=== PATIENT | female | born 1975 | race Caucasian/White ===

== ENCOUNTER → 2016-07-16 | Outpatient (CLI) | payer BC ==
--- NOTE | 2016-07-16 21:18 | WWHP ---
DATE OF SERVICE: 07/16/2016. CHIEF COMPLAINT: Patient is here for her routine gynecologic exam. HPI: This is a 40-year-old G3, P3 with an LMP of 06/19/2016. Her is status post vasectomy. The patient states her periods are regular every month, and they typically last about 7 to 8 days with 3 days of heavier flow. She also has a lot of cramping on the heavy days. PAST MEDICAL HISTORY: Anxiety. MEDICATIONS: 1. Lexapro 20 mg daily. 2. Iron supplement 65 mg daily. 3. Vitamin D 4000 units daily. ALLERGIES: No known drug allergies. PAST SURGICAL HISTORY: Gastric bypass 2010, tonsillectomy with adenoidectomy at age 11, right knee arthroscopic surgery at age 14. Past OB history: 3 vaginal deliveries. 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 SOCIAL HISTORY: She denies tobacco, alcohol, and drug use. She has been since 1992. She recently moved to the area from [place]. 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 FAMILY HISTORY: Paternal grandmother and a paternal aunt had breast cancer. REVIEW OF SYSTEMS: Weight has been stable. However, she did lose about 100 pounds after her bariatric surgery in 2010. She denies respiratory, cardiac, or GI problems. PHYSICAL EXAM: Blood pressure 142/82. Height 5 feet 5 inches. Weight 198 pounds. Temperature 98.1, pulse 70. This is a well-developed, well-nourished white female who is alert and oriented x3 in no acute distress. HEENT is within normal limits. NECK: Supple without mass or thyromegaly. CHEST AND LUNGS: Clear to auscultation. HEART: Regular rate and rhythm. Breasts are without mass or discharge. Axillary exam is negative for adenopathy. BACK: Negative for CVA tenderness. ABDOMEN: Soft, nontender, without palpable masses. PELVIC EXAM: Normal external genitalia. Cervix and vagina appear normal. There is no unusual discharge. There is no cervical motion tenderness. The uterus is mid to anterior, about 8 week size and it is nontender. There are no palpable adnexal masses or tenderness. Rectal exam is negative for mass or tenderness and is negative for occult blood. EXTREMITIES: Nontender. IMPRESSION: 1. A 40-year-old female with mild hypermenorrhea. 2. Mildly enlarged uterus and otherwise unremarkable gynecologic exam. 3. Mildly elevated blood pressure. PLAN: 1. Pap smear was performed. 2. Self-breast examination was discussed. 3. Mammogram will be due in about 1 to 2 months according to the patient and an order form was given to patient for this. 4. We had a long discussion regarding possible options for her hypermenorrhea including medical treatment with meclofenamate sodium. She was advised to avoid NSAID type medications because of her gastric surgery. She would like to look into doing an endometrial ablation. The ACOG frequently ask questions #[id number] handout was given to the patient. We will make a referral to a local gynecologists for possible ablation. 5. She was instructed to have her blood pressure checked on a regular basis and follow up with her primary care physician for elevated blood pressures. 6. She will return in one year. MELONY
== END ==
LOC: WWCWWP 07:54
PROVIDERS: ATTEND Obstetrics & Gynecology
DX: Z01.419 Encounter for gynecological examination (general) (routine) without abnormal findings (principal); N92.0 Excessive and frequent menstruation with regular cycle; R03.0 Elevated blood-pressure reading, without diagnosis of hypertension

== ENCOUNTER → 2016-10-01 | Outpatient (CLI) | payer BC, OTHER ==
--- NOTE | 2016-10-03 08:07 | MM ---
Reason for exam: screening (asymptomatic). Last mammogram was performed 1 year and 1 month ago. History: Family history of breast cancer in paternal grandmother at age 60 and breast cancer in paternal aunt at age 50. Physical Findings: A clinical breast exam by your physician is recommended on an annual basis and results should be correlated with mammographic findings. MG 3D Screening Mammo W/Cad Bilateral CC and MLO view(s) were taken. Prior study comparison: August 27, 2015, mammogram. There are scattered fibroglandular densities. There is chronic nodularity in the left breast. No significant changes when compared with prior studies. ASSESSMENT: Negative, BI-RAD 1 RECOMMENDATION: Routine screening mammogram of both breasts in 1 year.
== END | disposition home or self-care (01) ==
LOC: RADMAMWWP 16:44
PROVIDERS: ATTEND Obstetrics & Gynecology
DX: Z12.31 Encounter for screening mammogram for malignant neoplasm of breast (principal)
CPT/HCPCS: 77063; G0202

== ENCOUNTER → 2016-10-03 | Outpatient (CLI) | payer OTHER ==
[2016-10-03 08:01] LABS: Anisocytosis Slight; Aty Lym Flag Slight; CH 18.2; CHCM 27.5; HCT 25.6 % (34.0-46.0); HDW 3.55; HGB 7.2 gm/dL (11.4-16.0); Hypochromasia Marked; MCH 18.8 pg (25.0-35.0); MCHC 28.2 g/dL (31.0-37.0); MCV 66.6 fL (80.0-100.0); Microcytosis Marked; Poikilocytosis Slight; RBC 3.85 m/uL (3.80-5.40); RDW 16.5 % (11.5-15.5); WBC 2.9 k/uL (3.8-10.6); WBC (Perox) 2.95
[2016-10-03 08:46] LABS: Add Differential Manual Differential
[2016-10-03 08:51] LABS: Manual Review Performed; Nucleated Red Blood Cells 0 /100 WBC (0-0); Total Cells Counted 100
== END | disposition home or self-care (01) ==
LOC: LABPAT 06:56
PROVIDERS: ATTEND Obstetrics & Gynecology
DX: Z01.812 Encounter for preprocedural laboratory examination (principal); N92.0 Excessive and frequent menstruation with regular cycle
CPT/HCPCS: 36415; 85025

== ENCOUNTER 2016-10-13 08:16 | Day surgery (SDC) | payer BC, OTHER ==
[2016-10-09 09:32] VITALS: BMI 30.7
--- NOTE | 2016-10-09 20:44 | HP ---
DATE OF ADMISSION: 10/13/2016 HISTORY OF PRESENT ILLNESS: Guadalupe is a 41-year-old 3, para 3-0-0-3, who presents initially on referral from Dr. Gaines for possible endometrial ablation. She has complaints of long-standing heavy and long cycles. Each cycle lasts at least 7 to 9 days and they are very heavy, often bleeding through protection. Her has had a vasectomy and she is not in need of contraception but would like some treatment for her menorrhagia. Past medical history is significant only for long-standing anemia, which has been confirmed with preoperative labs during this ( ) and will be evaluated more thoroughly following the procedure. Past surgical history is significant for: 1. Gastric bypass in 2010. 2. She had tonsils and adenoids removed in 1986. 3. She has also had right knee arthroscopy. There were no anesthetic concerns. OBSTETRICAL HISTORY: 3, para 3-0-0-3 with 3 term vaginal deliveries without complications. Method of contraception is vasectomy. Gynecologic history is unremarkable, with no history of any infections to include STDs. FAMILY HISTORY: Noncontributory. SOCIAL HISTORY: The patient is and works for ( ). She is a nonsmoker and denies any alcohol, drugs or any other social concerns. Current medications include: 1. Iron sulfate 325 mg daily. 2. Lexapro 20 mg daily. 3. Vitamin D3 4000 units daily. ALLERGIES: NO KNOWN DRUG ALLERGIES. Review of systems is confined to History of Present Illness. PHYSICAL EXAMINATION: Vital signs are stable. The patient is afebrile. In general, this is a well-developed, well-nourished white female in no acute distress. Her heart has a regular rhythm and rate without murmur. Her lungs are clear to auscultation bilaterally in all ernandez. Her abdomen is nondistended, has normoactive bowel sounds. It is soft, nontender and without any palpable masses, hepatosplenomegaly or hernias. Her extremities are without any cyanosis, clubbing or edema and are nontender to palpation. Pelvic examination demonstrates normal external genitalia and BUS with normal vaginal mucosa and cervix. There is no cervical motion tenderness. The uterus sounded to 8 cm and endometrial biopsy performed demonstrated adequate tissue which was ultimately found to be benign. The uterus is 5 to 6 weeks in size, mid plane, mobile, nontender and normal in shape. The adnexa are normal and nontender without mass bilaterally. ASSESSMENT AND PLAN: Menorrhagia. We discussed multiple different options for treatment, including Lysteda and/or meclofenamate. We also discussed hormonal manipulation. The patient declined all these in favor of proceeding with NovaSure endometrial ablation. The risks and complications of the procedure have been thoroughly discussed, including the risks for bleeding, bleeding requiring transfusion, infection and injury to local structures, specifically to include uterine perforation, Asherman syndrome and subsequent hematometra. She understood all of these concerns and has agreed to proceed. We are scheduled for the morning of Thursday, October 13, 2016.
[~2016-10-13 08:16] MED LIST: DEXAMETHASONE SOD PHOSPHATE 10 MG/ML 1 ML VIAL IV ONE; LACTATED RINGERS 1,000 ML IV SCH; MIDAZOLAM 2 MG/2 ML VIAL IV PRN; ONDANSETRON 4 MG/2 ML VIAL IVP ONE; Pre Op ABX Message 1 EACH MISC MISCELLANE ONE
[2016-10-13] MEDS ORDERED: LIDOCAINE 1% 20 ML VIAL (10MG/ML) FOR IV START SQ ONE (09:05)
[2016-10-13] MEDS ORDERED: MIDAZOLAM 2 MG/2 ML VIAL ONE (09:54)
[2016-10-13] MEDS ORDERED: KETOROLAC 30 MG/ML 1 ML VIAL ONE (09:54)
[2016-10-13] MEDS ORDERED: LIDOCAINE 1% INJ 10MG/ML (20 ML MDV) ONE (09:54)
[2016-10-13] MEDS ORDERED: fentaNYL (PF) 50 MCG/ML 2 ML AMP ONE (09:54)
[2016-10-13] MEDS ORDERED: PROPOFOL 10 MG/ML 20 ML VIAL IV ONE (09:54)
[2016-10-13] MEDS ORDERED: KETOROLAC 30 MG/ML 1 ML VIAL IVP PRN (10:29)
[2016-10-13] MEDS ORDERED: SIMETHICONE 80 MG CHEWABLE PO PRN (10:29)
[2016-10-13] MEDS ORDERED: Acetaminophen-Codeine 300-30mg TAB PO PRN ×2 (10:29)
[2016-10-13] MEDS ORDERED: IBUPROFEN 600 MG TAB PO PRN (10:29)
[2016-10-13] MEDS ORDERED: ONDANSETRON 4 MG/2 ML VIAL IVP PRN (10:29)
[2016-10-13] MEDS ORDERED: diphenhydrAMINE 50 MG/ML 1 ML VIAL IVP PRN (10:29)
[2016-10-13] MEDS ORDERED: METOCLOPRAMIDE 5 MG/ML 2 ML VIAL IVP PRN (10:29)
[2016-10-13] MEDS ORDERED: LACTATED RINGERS 1,000 ML IV SCH (10:30)
--- NOTE | 2016-10-13 10:35 | P.OP ---
Date of Procedure: 10/13/16 Preoperative Diagnosis: #1. Menorrhagia #2. Anemia Postoperative Diagnosis: Same Procedure(s) Performed: #1. Diagnostic hysteroscopy #2. NovaSure endometrial ablation Implants: Anesthesia: other (Gen. by facemask) Surgeon: Amando Mcfadden Estimated Blood Loss (ml): 5 IV fluids (ml): 400 Urine output (ml): 75 Pathology: other Condition: stable Disposition: PACU Indications for Procedure: Operative Findings: Preoperative pelvic examination demonstrated a 5-6 week anteverted mobile normal shaped uterus with normal adnexa bilaterally. Intraoperatively, the uterus sounded to approximately 9.5 cm with a cervical length of roughly 3.5 cm. Hysteroscopic Sameer the view was somewhat obscured by blood in the saline as well as some shaggy tissue. The tube tubal areas were noted though not clearly seen. The settings for the NovaSure tool for a length of 6.0 cm, a width of 4.4 cm, a total power 145 seconds. After a total run time of 113 seconds, the base unit read "procedure complete." The postprocedural result appeared to be excellent. The patient is a poor candidate for vaginal hysterectomy should it become necessary. Description of Procedure: The patient was prepped and draped in usual fashion after general anesthesia was administered by the anesthesiologist. A weighted speculum was placed and the anterior lip of the cervix grasped with a single-tooth tenaculum. The bladder was draining approximately 75 mL of clear marika urine. The uterus was sounded to roughly 9.5 cm with a cervical length of roughly 3.5 cm as noted above. Serial dilation was carried out to admit the diagnostic scope. The scope was placed within the endometrial cavity and the view was somewhat obscured by shaggy tissue as well as blood in the saline though there did not appear to be any pathology present. The tubal ostia were vaguely visualized. After hysteroscopy had been deemed adequate, the scope was removed and set aside and further dilation carried out to admit the NovaSure tool. The 2 was placed within the in vitro cavity and seated well. The settings for the tool are as noted above. The cavity check was attempted and passed without difficulty. The tool was enabled and the run was started. After a run time of 113 seconds, the base unit disengaged and read "procedure complete." The 2 was closed, removed, and discarded. The diagnostic scope was replaced within the in vitro cavity and the result appeared to be excellent. All instrumentation was removed. Small points of bleeding at the tenaculum sites were made hemostatic with pressure. Estimated blood loss for the entire case was less than 5 mL. There were no complications. All sponge, instrument, and needle counts were correct. The patient tolerated the procedure well and proceeded to the recovery room in stable condition.
[2016-10-13 10:36] VITALS: TEMP 98
[2016-10-13] MEDS: MEPERIDINE 50 MG/ML SYRINGE IVP ONE ×2 (10:47→10:52)
[2016-10-13 10:49] VITALS: RESP 18
[2016-10-13] MEDS: HYDROmorphone 1 MG/ML 1 ML SYRINGE IVP PRN ×2 (11:16→11:22)
[2016-10-13 11:52] VITALS: PULSE 70
[2016-10-13] MEDS ORDERED: LACTATED RINGERS 1,000 ML IV ONE (11:57)
[2016-10-13 12:09] VITALS: BP 133/89
== END 2016-10-13 12:19 | disposition home or self-care (01) ==
LOC: OR 08:16
PROVIDERS: ATTEND Obstetrics & Gynecology
DX: N92.0 Excessive and frequent menstruation with regular cycle (principal); D64.9 Anemia, unspecified; Z98.84 Bariatric surgery status; Z79.899 Other long term (current) drug therapy
CPT/HCPCS: 81025; 58563; J2250; J1100; J2175; J2405; J2001; J3010; J1885; J1170; J2704

== ENCOUNTER → 2017-06-16 | Outpatient (CLI) | payer BC ==
--- NOTE | 2017-06-16 10:42 | US ---
EXAMINATION TYPE: US bladder DATE OF EXAM: 06/16/2017 COMPARISON: NONE CLINICAL HISTORY: 41-year-old female N32.89 Bladder spasm. TECHNIQUE: Multiple sonographic images of the bladder are obtained. FINDINGS: No gross abnormality of the initially urine distended bladder. Both ureteral jets are visualized. Pos t Void Residual Volume: 15.9 mL, increased but falls within an acceptable range. IMPRESSION: Some residual volume in the bladder after voiding (15.9 mL) falls within an acceptable range.
== END ==
LOC: RADUSWWP 10:12
PROVIDERS: ATTEND Family Medicine
DX: N32.89 Other specified disorders of bladder (principal)
CPT/HCPCS: 76857

== ENCOUNTER → 2017-07-30 | Outpatient (CLI) | payer MEDICAID ==
--- NOTE | 2017-07-31 10:55 | ECHOF ---
Referral Reason:R00.1 Bradycardia MEASUREMENTS -------- HEIGHT: 165.1 cm WEIGHT: 81.6 kg BP: RVIDd: 3.7 cm (< 3.3) IVSd: 1.1 cm (0.6 - 1.1) LVIDd: 4.9 cm (3.9 - 5.3) LVPWd: 1.0 cm (0.6 - 1.1) IVSs: 1.6 cm LVIDs: 3.1 cm LVPWs: 1.5 cm LAESV Index (A-L): 30.44 ml/m Ao Diam: 2.9 cm (2.0 - 3.7) AV Cusp: 1.9 cm (1.5 - 2.6) LA Diam: 3.8 cm (2.7 - 3.8) EPSS: 0.8 cm MV E Tyrone: 0.86 m/s MV DecT: 280 ms MV A Tyrone: 0.90 m/s MV E/A Ratio: 0.95 RAP: 5.00 mmHg RVSP: 27.91 mmHg MV EF SLOPE: 79.89 mm/s (70 - 150) MV EXCURSION: 1.19 cm (> 18.000) FINDINGS -------- Resting bradycardia (HR<60bpm). This was a technically good study. The left ventricular size is normal. Left ventricular wall thickness is normal. Overall left vent ricular systolic function is normal with, an EF between 55 - 60 %. The right ventricle is mild to moderately enlarged. LA is midly dilated 29-33ml/m2. RA appears enlarged. The aortic valve is trileaflet, and appears structurally normal. No aortic stenosis or regurgitation. The mitral valve leaflets are mildly thickened. There is trace to mild mitral regurgitation. Mild tricuspid regurgitation present. Right ventricular systolic pressure is normal at < 35 mmHg. There is no evidence of pulmonary hypertension. Trace/mild (physiologic) pulmonic regurgitation. The aortic root size is normal. Normal inferior vena cava with normal inspiratory collapse consistent with estimated right atrial pre ssure of 5 mmHg. There is no pericardial effusion. CONCLUSIONS -------- 1. Resting bradycardia (HR<60bpm). 2. This was a technically good study. 3. The left ventricular size is normal. 4. Left ventricular wall thickness is normal. 5. Overall left ventricular systolic function is normal with, an EF between 55 - 60 %. 6. The right ventricle is mild to moderately enlarged. 7. LA is midly dilated 29-33ml/m2. 8. RA appears enlarged. 9. The aortic valve is trileaflet, and appears structurally normal. No aortic stenosis or regurgitati on. 10. The mitral valve leaflets are mildly thickened. 11. There is trace to mild mitral regurgitation. 12. Mild tricuspid regurgitation present. 13. Right ventricular systolic pressure is normal at < 35 mmHg. 14. There is no evidence of pulmonary hypertension. 15. Trace/mild (physiologic) pulmonic regurgitation. 16. The aortic root size is normal. 17. There is no pericardial effusion. ELECTRICAL SYSTEMS DESIGNER: Tonny Chau RDCS
== END | disposition home or self-care (01) ==
LOC: RADECHMAIN 13:52
PROVIDERS: ATTEND Family Medicine
DX: I08.1 Rheumatic disorders of both mitral and tricuspid valves (principal); R00.1 Bradycardia, unspecified
CPT/HCPCS: 93306

== ENCOUNTER → 2017-08-22 | Outpatient (CLI) | payer MEDICAID | END | disposition home or self-care (01) | LOC: LABWHC1 08:07 | PROVIDERS: ATTEND Internal Medicine Clinical Cardiac Electrophysiology | DX: E03.9 Hypothyroidism, unspecified (principal); E78.2 Mixed hyperlipidemia | CPT/HCPCS: 36415; 80061; 84443 ==

== ENCOUNTER → 2017-09-28 | Outpatient (CLI) | payer MEDICAID ==
--- NOTE | 2017-09-29 14:19 | MM ---
Reason for exam: screening (asymptomatic). Last mammogram was performed 1 year ago. History: Family history of breast cancer in paternal grandmother at age 60 and breast cancer in paternal aunt at age 50. Physical Findings: A clinical breast exam by your physician is recommended on an annual basis and results should be correlated with mammographic findings. MG 3D Screening Mammo W/Cad Bilateral CC and MLO view(s) were taken. Prior study comparison: October 01, 2016, bilateral MG 3d screening mammo w/cad. August 27, 2015, mammogram. The breast tissue is heterogeneously dense. This may lower the sensitivity of mammography. No significant changes when compared with prior studies. ASSESSMENT: Benign, BI-RAD 2 RECOMMENDATION: Routine screening mammogram of both breasts in 1 year.
== END | disposition home or self-care (01) ==
LOC: RADMAMWWP 16:48
PROVIDERS: ATTEND Obstetrics & Gynecology
DX: Z12.31 Encounter for screening mammogram for malignant neoplasm of breast (principal)
CPT/HCPCS: 77063; 77067